=== PATIENT | male | born 2000 ===

== ENCOUNTER 2023-08-19 05:24 | Day surgery (SDC) | payer OTHER ==
[2023-08-19] MEDS ORDERED: CEFAZOLIN SODIUM 1,000 MG VIAL ONE (07:13)
[2023-08-19] MEDS ORDERED: DEXAMETHASONE SODIUM PHOSP/PF 10 MG/ML VIAL ONE (07:37)
[2023-08-19] MEDS ORDERED: DEXAMETHASONE SODIUM PHOSP/PF 10 MG/ML VIAL IV ONE (08:15)
[2023-08-19] MEDS ORDERED: CEFAZOLIN SODIUM 1,000 MG in 0.9 % SODIUM CHLORIDE 50 ML IV ONE (08:15)
[2023-08-19] MEDS ORDERED: SUGAMMADEX SODIUM 200 MG/2 ML VIAL IV ONE ×2 (08:30→08:41)
[2023-08-19] MEDS ORDERED: OXYMETAZOLINE HCL 15 ML NASAL DROPS NASAL ONE (08:30)
== END 2023-08-19 12:05 | disposition home or self-care (01) ==
LOC: CIR.AMB 05:24
PROVIDERS: ATTEND Otolaryngology
DX: J35.3 Hypertrophy of tonsils with hypertrophy of adenoids (principal); Q35.7 Cleft uvula